=== PATIENT | female | born 1970 | race Caucasian/White ===

== ENCOUNTER → 2024-02-20 10:58 | Outpatient (REF) | payer BC, SELFPAY | LOC: HWRAD 10:58 | PROVIDERS: ATTENDING PHYSICIAN Urology; FAMILY PHYSICIAN Nurse Practitioner Adult Health | DX: N39.0 Urinary tract infection, site not specified (principal); N31.9 Neuromuscular dysfunction of bladder, unspecified; N39.41 Urge incontinence; R10.9 Unspecified abdominal pain | CPT/HCPCS: 76770 ==

== ENCOUNTER 2024-03-25 06:22 | Day surgery (SDC) | payer BC, SELFPAY ==
[2024-03-19 08:27] VITALS: BMI 42.7
[2024-03-19 10:33] LABS: % Basophils 0.7 % (0-2); % Eosinophils 1.7 % (0-6); % Immature Granulocytes 0.2 % (0-0.5); % Lymphocytes 37.6 % (20.5-51.1); % Monocytes 10.8 % (1.7-9.3); Absolute Eosinophils 0.1 10^3/uL (0-0.7); Absolute Lymphocytes 2.2 10^3/uL (1.2-3.4); Absolute Monocytes 0.6 10^3/uL (0.1-0.6); Absolute Neutrophils 2.8 10^3/uL (1.4-6.5); Hematocrit 40.1 % (37.0-47.0); Hemoglobin 13.1 g/dL (12.0-16.0); Mean Corp Hgb Conc. 32.7 g/dL (33.0-37.0); Mean Corpuscular Hgb 29.5 pg (27.0-31.0); Mean Corpuscular Volume 90.3 fL (81.0-99.0); Mean Platelet Volume 10.8 fL (7.4-10.4); Nucleated Red Blood Cells % 0 %; Platelet Count 198 10^3/uL (130-400); Red Blood Cell Count 4.44 10^6/uL (4.20-5.40); Red Cell Dist. Width 12.8 % (11.5-14.5); White Blood Cell Count 5.7 10^3/uL (4.8-10.8)
[2024-03-19 10:39] LABS: INR 1.01; PT 13.1 Sec (11.4-14.6)
[2024-03-19 10:40] LABS: APTT 33.4 Sec (23.4-35.0)
[2024-03-19 10:56] LABS: Urine Albumin Negative (Neg - Trace); Urine Bilirubin Negative (Negative); Urine Character Slightly Cloudy (Clear); Urine Color Yellow; Urine Glucose Negative (Negative); Urine Ketone Negative (Negative); Urine Leukocyte 2+ (Negative); Urine Nitrite Positive (Negative); Urine Occult Blood Negative (Negative); Urine Specific Gravity 1.015 (<1.030); Urine Urobilinogen Negative (Neg - 1+)
[2024-03-19 11:09] LABS: Blood Urea Nitrogen 14 mg/dl (7-17); Calcium 9.3 mg/dl (8.4-10.2); Carbon Dioxide 28 mmol/L (22-30); Chloride 102 mmol/L (98-107); Estimated Creatinine Clearance 114 ml/min; Glucose 93 mg/dl (70-99); Potassium 4.3 mmol/L (3.5-5.1); Sodium 142 mmol/L (135-145); eGFR > 60.00
[2024-03-19 11:37] LABS: Urine Squamous Cell >30 /LPF (Few)
[2024-03-19 11:38] LABS: Urine Bacteria Many (Negative)
--- NOTE | 2024-03-20 08:02 | PTCARENOTE ---
Patients 03/19 [facility] abnormal-Culture pending [facility] office notified-
[2024-03-25 10:07] VITALS: BP 95/62
[2024-03-25 10:13] VITALS: BMI 42.7
[2024-03-25] MEDS: NORMOSOL-R/PLASMALYTE-A 1000 IV (10:52)
[2024-03-25 12:23] VITALS: BP 101/55
[2024-03-25 12:31] VITALS: BP 92/60
[2024-03-25 12:45] VITALS: BP 100/58
[2024-03-25 13:00] VITALS: BP 100/47
== END 2024-03-25 13:23 | disposition home or self-care (01) ==
LOC: SDS 06:22
PROVIDERS: ATTENDING PHYSICIAN Urology
DX: T83.190A Other mechanical complication of urinary electronic stimulator device, initial encounter (principal); Y82.8 Other medical devices associated with adverse incidents; N39.41 Urge incontinence
CPT/HCPCS: 64590; 36415; 80048; 81003; 81015; 85025; 85610; 85730; 87086; 87088; 87186; 93005; C1767; C1787